=== PATIENT | female | born 1980 | race American Indian/Alaskan Native ===

== ENCOUNTER 2019-06-02 11:16 | Emergency (ER) | payer SELFPAY ==
[2019-06-02] MEDS ORDERED: diphenhydrAMINE 50 MG/ML VIAL IV ONE (11:44)
[2019-06-02] MEDS ORDERED: LIDOCAINE (4%) 40 MG/ML TOPICAL SOLN 50 ML BOTTLE TP ONE (11:44)
[2019-06-02] MEDS ORDERED: MAGNESIUM SULFATE 2 GM/50 ML BAG IV ONE (11:45)
[2019-06-02] MEDS ORDERED: METOCLOPRAMIDE 10 MG/2 ML INJ IV ONE (11:45)
--- NOTE | 2019-06-02 11:47 | Emergency Department Report ---
Chief Complaint: Headache Stated Complaint: TOOTHACHE Time Seen by Provider: 06/02/19 11:45 - HPI History of Present Illness: 39 y/o female with pmh dentalgia, meningitis a few years ago at [facility] p/w left sided headache and dental pain neck supple when distracted appears calm and comfortable reportedly on chronic narcotics ct head labs pain control main side consider getting medical records from [facility] Vital Signs (72 hours) 06/02/19 11:40 Temperature 98.4 F Pulse Rate 82 Respiratory 20 Rate Blood Pressure 155/104 O2 Sat by Pulse 100 Oximetry - Exam Vital Signs: Vital Signs 06/02/19 11:40 Temperature 98.4 F Pulse Rate 82 Respiratory 20 Rate Blood Pressure 155/104 O2 Sat by Pulse 100 Oximetry MSE screening note: Focused history and physical exam performed. Due to findings the following was ordered: ED Medical Decision Making - Lab Data Result diagrams: 06/02/19 12:10 06/02/19 12:10 ED Disposition for MSE Condition: Stable
[2019-06-02] MEDS ORDERED: ACETAMINOPHEN 325 MG TAB ONE (12:35)
[2019-06-02 12:54] LABS: Hematocrit 36.5 % (30.3-42.9); Hemoglobin 12.1 gm/dl (10.1-14.3); Mean Corpuscular HGB Conc 33 % (30-34); Mean Corpuscular Volume 94 fl (79-97); Platelet Count 257 K/mm3 (140-440); Red Cell Distribution Width 13.7 % (13.2-15.2)
[2019-06-02 13:02] LABS: Alanine Aminotransferase 11 units/L (7-56); Albumin 4.3 g/dL (3.9-5); BUN/Creatinine Ratio 10; Blood Urea Nitrogen 8 mg/dL (7-17); Calcium 9.1 mg/dL (8.4-10.2); Hemolysis Index 7
[2019-06-02] MEDS ORDERED: ACETAMINOPHEN 325 MG TAB PO ONE (13:04)
[2019-06-02 13:06] LABS: INR 1.03 (0.87-1.13)
[2019-06-02 13:07] LABS: INR 1.07 (0.87-1.13); Partial Thromboplastin Time 24.4 Sec. (24.2-36.6)
--- NOTE | 2019-06-02 14:22 | Cat Scan Report ---
CT HEAD WITHOUT CONTRAST INDICATION / CLINICAL INFORMATION: headache. Dental pain TECHNIQUE: Axial imaging performed from the skull apex through the skull base without the use of cont rast. Sagittal and coronal reformatted images. All CT scans at this location are performed using CT dose reduction for ALARA by means of automated exposure control. COMPARISON: None available. FINDINGS: CEREBRAL PARENCHYMA: No significant abnormality. No acute territorial infarct. HEMORRHAGE: None. EXTRA-AXIAL SPACES: Normal in size and morphology for the patient's age. VENTRICULAR SYSTEM: Normal in size and morphology for the patient's age. MIDLINE SHIFT OR HERNIATION: None. CEREBELLUM / BRAINSTEM: No significant abnormality. CALVARIUM: No significant abnormality. ORBITS: Normal as visualized. PARANASAL SINUSES / MASTOID AIR CELLS: Normal as visualized. SOFT TISSUES of HEAD: No significant abnormality. ADDITIONAL FINDINGS: None. IMPRESSION: Cranial CT scan within normal limits. CT FACIAL BONES WITHOUT CONTRAST INDICATION : headache. TECHNIQUE: Axial imaging performed through the face with reconstructed images also reviewed. Sagitta l and coronal reformatted images. All CT scans at this location are performed using CT dose reduction for ALARA by means of automated exposure control. COMPARISON: None FINDINGS: No acute facial bone fracture is appreciated. There is evidence of a chronic right inferio r orbital wall fracture medially. No obvious entrapment. Minimal mucosal thickening is noted the infe rior maxillary sinuses, otherwise, the remaining paranasal sinuses are well-aerated. The visualized m astoid air cells are clear. Poor dentition with multiple dental caries is noted. Small periapical tooth abscesses are suspected i nvolving a left maxillary bicuspid and a left maxillary molar. No obvious soft tissue extension. The remaining mandibular teeth are unremarkable. IMPRESSION: No acute facial bone abnormality. Chronic right medial orbital wall fracture. Poor dentition as described above. Signer Name: Jacky Godwin Jr, MD Signed: 06/02/2019 2:18 PM Workstation Name: [id number]
[2019-06-02] MEDS ORDERED: METOCLOPRAMIDE 10 MG/2 ML INJ ONE (18:44)
[2019-06-02] MEDS ORDERED: diphenhydrAMINE 50 MG/ML VIAL ONE (18:45)
--- NOTE | 2019-06-02 21:16 | Emergency Department Report ---
ED Headache HPI - General Chief Complaint: Headache Stated Complaint: TOOTHACHE Time Seen by Provider: 06/02/19 11:45 Source: patient, family Exam Limitations: no limitations - History of Present Illness Initial Comments: Patient is a 39-year-old female that presents emergency room with complaints of toothache and headache. Patient states that her headache and tooth pain started a week ago. Patient states she started having a left upper tooth pain and it triggered a migraine. Patient states she has a long history of migraine and sees a neurologist. Patient states her pain is a 10 out of 10. Patient states that her pain is better with rest and worse with light and sound. Patient denies neck pain. Patient denies neck stiffness. Patient denies fever and chills. Timing/Duration: 1 week Recent Head Trauma: frequent headaches, chronic headaches Modifying Factors: improves with: exposure to light, medication, rest Associated Symptoms: denies symptoms, facial pain. denies: confusion, fatigue, fever/chills, flushing, loss of consciousness, nausea/vomiting, nasal c ongestion, nasal drainage, numbness in legs/feet, rash, seizures, stiff neck, vision changes, weakness Allergies/Adverse Reactions: Allergies No Known Allergies Allergy (Unverified 06/02/19 11:45) Home Medications: Ambulatory Orders Amoxicillin/Potassium Clav [Augmentin 875-125 Tablet] 1 each PO BID 10 Days #20 tablet 06/02/19 HYDROcodone/APAP 5-325 [[place] 5/325] 1 each PO Q4HR PRN #10 tablet 06/02/19 methylPREDNISolone [Medrol 4MG DOSEPAK (21 tabs)] 4 mg PO DAILY 6 Days #1 tab.ds.pk 06/02/19 ED Review of Systems ROS: Stated complaint: TOOTHACHE Other details as noted in HPI Constitutional: denies: chills, fever, malaise, weakness Eyes: denies: eye pain, eye discharge, vision change ENT: dental pain. denies: ear pain, throat pain Respiratory: denies: cough, shortness of breath, wheezing Cardiovascular: denies: chest pain, palpitations Endocrine: no symptoms reported Gastrointestinal: denies: abdominal pain, nausea, diarrhea Genitourinary: denies: urgency, dysuria, discharge Musculoskeletal: denies: back pain, joint swelling, arthralgia Skin: denies: rash, lesions Neurological: headache. denies: weakness, paresthesias Psychiatric: denies: anxiety, depression Hematological/Lymphatic: denies: easy bleeding, easy bruising ED Past Medical Hx - Past Medical History Previous Medical History?: Yes Additional medical history: Hx meningitis 2010 - Surgical History Past Surgical History?: Yes Additional Surgical History: brain sxr - Family History Family history: no significant - Social History Smoking Status: Never Smoker Substance Use Type: Alcohol - Medications Home Medications: Home Medications Medication Instructions Recorded Confirmed Last Taken Type Amoxicillin/Potassium Clav 1 each PO BID 10 Days #20 tablet 06/02/19 Unknown Rx [Augmentin 875-125 Tablet] HYDROcodone/APAP 5-325 [[place] 1 each PO Q4HR PRN #10 tablet 06/02/19 Unknown Rx 5/325] methylPREDNISolone [Medrol 4MG 4 mg PO DAILY 6 Days #1 tab.ds.pk 06/02/19 Unknown Rx DOSEPAK (21 tabs)] ED Physical Exam - General Limitations: No Limitations General appearance: alert, in no apparent distress - Head Head exam: Present: atraumatic, normocephalic - Eye Eye exam: Present: normal appearance, PERRL Pupils: Present: normal accommodation - ENT ENT exam: Present: normal orophraynx, mucous membranes moist, TM's normal bilaterally, normal external ear exam, other (gingival inflammation noted to the left upper posterior gums and poor dentition noted). Absent: mucous membranes dry - Neck Neck exam: Present: normal inspection, full ROM. Absent: tenderness, meningismus, lymphadenopathy, thyromegaly - Respiratory Respiratory exam: Present: normal lung sounds bilaterally. Absent: respiratory distress, wheezes, rales - Cardiovascular Cardiovascular Exam: Present: regular rate, normal rhythm. Absent: systolic murmur, diastolic murmur, rubs, gallop - GI/Abdominal GI/Abdominal exam: Present: soft, normal bowel sounds. Absent: distended, tenderness, guarding - Extremities Exam Extremities exam: Present: normal inspection - Back Exam Back exam: Present: normal inspection - Neurological Exam Neurological exam: Present: alert, oriented X3 - Psychiatric Psychiatric exam: Present: normal affect, normal mood - Skin Skin exam: Present: warm, dry, intact, normal color. Absent: rash ED Course Vital Signs 06/02/19 06/02/19 06/02/19 11:40 13:05 14:05 Temperature 98.4 F Pulse Rate 82 Respiratory 20 18 18 Rate Blood Pressure 155/104 Blood Pressure [Right] O2 Sat by Pulse 100 Oximetry 06/02/19 21:08 Temperature 99.4 F Pulse Rate 70 Respiratory 15 Rate Blood Pressure Blood Pressure 143/100 [Right] O2 Sat by Pulse 100 Oximetry - Reevaluation(s) Reevaluation #1: Patient states her headache is severe. Patient given Medrol, clindamycin for her gingival infection and tooth infection and Dilaudid for pain. 06/02/19 21:18 Reevaluation #2: Patient states her pain has resolved. Patient states she is feeling much better. Patient states she is ready to go home. I discussed all results with patient. Discussed plan of care with patient. Patient agrees with plan of care. Patient will be discharged home. Patient given discharge instructions. Patient and mother voiced understanding of discharge instructions. 06/02/19 22:11 ED Medical Decision Making - Lab Data Result diagrams: 06/02/19 12:10 06/02/19 12:10 - Radiology Data Radiology results: report reviewed CT HEAD WITHOUT CONTRAST INDICATION / CLINICAL INFORMATION: headache. Dental pain TECHNIQUE: Axial imaging performed from the skull apex through the skull base without the use of contrast. Sagittal and coronal reformatted images. All CT scans at this location are performed u sing CT dose reduction for ALARA by means of automated exposure control. COMPARISON: None available. FINDINGS: CEREBRAL PARENCHYMA: No significant abnormality. No acute territorial infarct. HEMORRHAGE: None. EXTRA-AXIAL SPACES: Normal in size and morphology for the patient's age. VENTRICULAR SYSTEM: Normal in size and morphology for the patient's age. MIDLINE SHIFT OR HERNIATION: None. CEREBELLUM / BRAINSTEM: No significant abnormality. CALVARIUM: No significant abnormality. ORBITS: Normal as visualized. PARANASAL SINUSES / MASTOID AIR CELLS: Normal as visualized. SOFT TISSUES of HEAD: No significant abnormality. ADDITIONAL FINDINGS: None. IMPRESSION: Cranial CT scan within normal limits. CT FACIAL BONES WITHOUT CONTRAST INDICATION : headache. TECHNIQUE: Axial imaging performed through the face with reconstructed images also reviewed. Sagittal and coronal reformatted images. All CT scans at this location are performed using CT dose reduction for ALARA by means of automated exposure control. COMPARISON: None FINDINGS: No acute facial bone fracture is appreciated. There is evidence of a chronic right inferior orbital wall fracture medially. No obvious entrapment. Minimal mucosal thickening is noted the inferior maxillary sinuses, otherwise, the remaining paranasal sinuses are well-aerated. The visualized mastoid air cells are clear. Poor dentition with multiple dental caries is noted. Small periapical tooth abscesses are suspected involving a left maxillary bicuspid and a left maxillary molar. No obvious soft tissue extension. The remaining mandibular teeth are unremarkable. IMPRESSION: No acute facial bone abnormality. Chronic right medial orbital wall fracture. Poor dentition as described above. - Medical Decision Making Patient is a 39-year-old female that presents emergency room with complaints of headache, migraine and tooth pain. Patient's clinical findings are consistent with a left gingival infection and a status migraine. Patient does not have a oral abscess. Patient had a CT of the head and face that was ordered in triage. No acute findings on both studies. Patient's labs are unremarkable. Patient is stable for discharge. Patient discharged home. Patient given antibiotics, Medrol Dosepak and hydrocodone. Patient given pain medications and antibiotics and Medrol in the ER and her pain resolved. Patient left the ER pain-free. - Differential Diagnosis toothache, tooth pain, dental infection, status migrainosus, headache, migr Critical care attestation.: If time is entered above; I have spent that time in minutes in the direct care of this critically ill patient, excluding procedure time. ED Disposition Clinical Impression: Tooth ache, Dental infection, Dental caries, Severe headache, Status migrainosus Sinusitis Qualifiers: Sinusitis location: frontal Chronicity: acute Recurrence: non-recurrent Qualified Code(s): J01.10 - Acute frontal sinusitis, unspecified Migraine Qualifiers: Migraine type: unspecified Status migrainosus presence: with status migrainosus Intractability: intractable Qualified Code(s): G43.911 - Migraine, unspecified, intractable, with status migrainosus Disposition: DC-01 TO HOME OR SELFCARE Is pt being admited?: No Does the pt Need Aspirin: No Condition: Stable Instructions: Dental Caries (ED), Migraine Headache (ED), Acute Headache (ED), Toothache (ED) Additional Instructions: Patient to take medications as directed. Patient to return to ER if condition worsens, changes or new symptoms arise. Patient to take Tylenol or ibuprofen when necessary for pain. Patient to rest. Patient to follow up with a dentist as soon as possible. Patient to see her neurologist within 2-3 days. Patient to follow-up with her primary care in 2-3 days. Prescriptions: Amoxicillin/Potassium Clav [Augmentin 875-125 Tablet] 1 each PO BID 10 Days #20 tablet methylPREDNISolone [Medrol 4MG DOSEPAK (21 tabs)] 4 mg PO DAILY 6 Days #1 tab.ds.pk HYDROcodone/APAP 5-325 [[place] 5/325] 1 each PO Q4HR PRN #10 tablet PRN Reason: Pain Referrals: [facility] [Other] - 2-3 Days JEWEL LOPEZ MD [Staff Physician] - 2-3 Days Time of Disposition: 22:09
[2019-06-02] MEDS ORDERED: CLINDAMYCIN 300 MG/50 mL 300 MG/50 ML BAG IV ONE (21:17)
[2019-06-02] MEDS ORDERED: HYDROmorphone 1 MG/1 ML INJ IV ONE (21:18)
[2019-06-02] MEDS ORDERED: methylPREDNISolone Sod Succinate 125 MG/2 ML INJ IV ONE (21:18)
[2019-06-02 23:16] VITALS: BP 111/71
== END 2019-06-02 22:50 | disposition home or self-care (01) ==
LOC: ED 11:16
DX: G43.911 Migraine, unspecified, intractable, with status migrainosus (principal); J01.10 Acute frontal sinusitis, unspecified; K02.9 Dental caries, unspecified; Z98.890 Other specified postprocedural states
CPT/HCPCS: 36415; 70450; 70486; 80053; 82550; 83735; 84702; 85027; 85610; 85730; 96365; 96375; 99284; J1170; J1200; J2765; J2930